=== PATIENT | female | born 1970 | race Caucasian/White ===

== ENCOUNTER 2017-04-07 15:04 | Outpatient (CLI) ==
[2012-11-24 02:39] VITALS: BMI 30.7
[2012-11-25 06:41] VITALS: TEMP 98.1
[2017-04-07 15:50] LABS: ALBUMIN 3.7 g/dL (3.4-5.0); ALBUMIN/GLOBULIN RATIO 0.88; ANION GAP 10.1; BILIRUBIN,DIRECT 0.15 mg/dL (0.00-0.30); BILIRUBIN,TOTAL 0.29 mg/dL (0.00-1.20); BUN/CREATININE RATIO 15.85; CALCIUM 9.7 mg/dL (8.2-10.2); CREATININE 0.82 mg/dL (0.60-1.30); PHOSPHORUS 2.9 mg/dL (2.5-4.9); POTASSIUM 4.1 mmol/L (3.5-5.10); TOTAL PROTEIN 7.9 g/dL (6.4-8.2)
== END 2017-04-07 15:05 | disposition home or self-care (01) ==
LOC: LAB 15:04
PROVIDERS: ATTEND Pain Medicine Interventional Pain Medicine
DX: Z51.81 Encounter for therapeutic drug level monitoring (principal); Z79.891 Long term (current) use of opiate analgesic; F19.20 Other psychoactive substance dependence, uncomplicated
CPT/HCPCS: 36415; 80053; 82248; 84100

== ENCOUNTER 2018-09-22 10:20 | Outpatient (CLI) ==
[2012-11-24 02:39] VITALS: BMI 30.7
[2012-11-25 06:41] VITALS: TEMP 98.1
== END 2018-09-22 10:21 | disposition home or self-care (01) ==
LOC: LAB 10:20
PROVIDERS: ATTEND Pain Medicine Interventional Pain Medicine
DX: Z51.81 Encounter for therapeutic drug level monitoring (principal); Z79.891 Long term (current) use of opiate analgesic
CPT/HCPCS: 36415; 80053; 82248; 84100